=== PATIENT | female | born 1990 | race Two or more races ===

== ENCOUNTER 2022-08-22 13:39 | Emergency (ER) | payer OTHER ==
[~2022-08-22] VITALS: Ht 162.6 cm; Wt 149.7 kg
[2022-08-22] MEDS ORDERED: CLARITIN10 M2 PO (14:21)
== END 2022-08-22 21:48 | disposition home or self-care (01) ==
LOC: ER 13:39
DX: R00.0 Tachycardia, unspecified (principal)